=== PATIENT | male | born 1980 | race Caucasian/White ===

== ENCOUNTER 2016-09-13 12:04 | Emergency (ER) | payer OTHER ==
--- NOTE | 2016-09-13 12:28 | PHYS DOC ---
Past History Past Medical History: No Pertinent History Additional Past Surgical Histo: vasectomy, orthopedic surgeries on the right arm. Smoking: Non-smoker Alcohol Use: None Drug Use: None Adult General Chief Complaint Chief Complaint: LACERATION/AVULSION HPI HPI He is a pleasant 36-year-old male who presents today with a sudden onset of pain and laceration sustained to the middle finger of the right hand over the DIP joint after he sustained a crush injury to the finger while loading a raisin washer. Patient denies any numbness and tingling or foreign body station within the finger and the laceration itself. Patient's bleeding is controlled with direct pressure. Patient's tetanus shot is not up-to-date. Patient denies any other symptoms or other complaints. Patient has good range of motion at the joints without issue. Patient does not have any other complaints. Injury occurred 20 mins prior to arrival. He is right-hand dominant Review of Systems Review of Systems Constitutional: Denies fever or chills [] Eyes: Denies change in visual acuity, redness, or eye pain [] HENT: Denies nasal congestion or sore throat [] Respiratory: Denies cough or shortness of breath [] Cardiovascular: No additional information not addressed in HPI [] GI: Denies abdominal pain, nausea, vomiting, bloody stools or diarrhea [] : Denies dysuria or hematuria [] Musculoskeletal: complains of right middle finger pain Integument: Denies rash or skin lesions [] Neurologic: Denies headache, focal weakness or sensory changes [] Endocrine: Denies polyuria or polydipsia [] Current Medications Current Medications Current Medications Medications (Trade) Dose Ordered Sig/[facility] Start Time Stop Time Status Last Admin Dose Admin Diphtheria/ Tetanus/Acell Pertussis (Boostrix) 0.5 ml ONCE ONCE 09/13/16 12:30 09/13/16 12:31 UNV Lidocaine HCl 20 ml 1X ONCE 09/13/16 12:30 09/13/16 12:31 UNV Physical Exam Physical Exam Impression is vital signs been reviewed by me within normal limits as to what signs been reported in the results on the chart. for this and recorded on the chart.Constitutional: Well developed, well nourished, no acute distress, non-toxic appearance. [] Cardiovascular:Heart rate regular rhythm, no murmur [] Lungs & Thorax: Bilateral breath sounds clear to auscultation [] Skin: Warm, dry, no erythema, no rash. [] Extremities: Patient has sustained a 1.2 cm laceration of the DIP and the dorsum of the hand of the right middle finger. Full range of motion patient is no active foreign body that I can see. Tenderness seemed to be intact to flexion and extension at the DIP PIP of that finger. Patient has bleeding is well-controlled direct pressure. He has normal sensation to light touch and proprioception. There is brisk capillary refill at the fingertip +2 brisk peripheral pulses at the ulnar and radial arteries. Neurologic: Alert and oriented X 3, normal motor function, normal sensory function, no focal deficits noted. [] Psychologic: Affect normal, judgement normal, mood normal. [] Current Patient Data Vital Signs Vital Signs Date Time Temp Pulse Resp B/P (MAP) Pulse Ox O2 Delivery O2 Flow Rate FiO2 09/13/16 12:10 98.3 79 20 99 Room Air Vital Signs Date Time Temp Pulse Resp B/P (MAP) Pulse Ox O2 Delivery O2 Flow Rate FiO2 09/13/16 12:10 98.3 79 20 99 Room Air EKG EKG [] Radiology/Procedures Radiology/Procedures [] Course & Med Decision Making Course & Med Decision Making Pertinent Labs and Imaging studies reviewed. (See chart for details) Plan at this time is to x-ray the finger to make there is no bony involvement given the location of the injury. Patient will have the wound explored after analgesic control completed. We will repair his wound assuming is no foreign body found on x-ray. 3 view x-ray of the right hand demonstrates that there is no foreign body no bony involvement of the joint itself, no foreign body underneath the skin, no fracture read by Dr. Mcclain. Laceration repair of the right middle finger measuring 1.2 cm. Patient has finger prepped with chlorhexidine and minimally washed. He had a digital block placed at the crease of the MCP joint of that right middle finger using approximately 3 mL of 2% lidocaine. Patient had good analgesic control without issue. Patient had good hemostasis, patient had 7 interrupted 3. 0 nylon Ethilon sutures placed in rapid succession with good closure of the wound itself. Patient location is no excessive bleeding. Patient tolerated the procedure well. Procedure was given verbal consent before proceeding. Patient then had his wound dressed and splinted Impression: Right middle finger laceration. [] Dragon Disclaimer Dragon Disclaimer This chart was dictated in whole or in part using Voice Recognition software in a busy, high-work load, and often noisy Emergency Department environment. It may contain unintended and wholly unrecognized errors or omissions. Departure Departure: Impression: Primary Impression: Laceration Disposition: HOME, SELF-CARE Condition: STABLE Referrals: NON,STAFF (PCP) Patient Instructions: Laceration Care, Adult Additional Instructions: These return for any new or increasing symptoms or if you have any bleeding that is not controlled direct pressure. Please return for any signs of infection or pain is not well controlled or medications prescribed. I did advise a follow-up with your primary care doctor in 10-14 days for suture removal and wound care as well as to follow-up the forms provided for Workmen's Compensation of that is needed. Scripts Acetaminophen (TYLENOL) 325 Mg Tablet 1-2 TAB PO QID, #30 TAB 2 Refills Prov: DANIEL MCCLAIN MD 09/13/16 Bacitracin (BACITRACIN) 3.5 Gm Oint...g. 1 LISY OS TID, #3.5 GM Prov: DANIEL MCCLAIN MD 09/13/16 DANIEL MCCLAIN MD Sep 13, 2016 12:28
--- NOTE | 2016-09-13 12:36 | RAD ---
Indication laceration to the middle finger. Injury. Pain. AP and oblique views of the left hand were obtained as well as a lateral image targeted to the long finger. No bony abnormality is seen
[2016-09-13] MEDS ORDERED: LIDOCAINE 2% 20 ML VIAL. IJ ONE (13:15)
[2016-09-13] MEDS ORDERED: DIPHTH,PERTUSS(ACELL),TET TOX 0.5 ML DISP.SYRIN. VAX IM ONE (13:15)
[2016-09-13] MEDS ORDERED: ACET325T9 PO (13:40)
[2016-09-13] MEDS ORDERED: BACI3.5O8 OS (13:40)
[2016-09-13 14:00] VITALS: BP 157/83
== END 2016-09-13 13:50 | disposition home or self-care (01) ==
LOC: ER 12:04
DX: S61.212A Laceration without foreign body of right middle finger without damage to nail, initial encounter (principal); W23.0XXA Caught, crushed, jammed, or pinched between moving objects, initial encounter; Y93.89 Activity, other specified; Y92.89 Other specified places as the place of occurrence of the external cause; Y99.8 Other external cause status
CPT/HCPCS: 12001; 73130; 90471; 90715; 99284-25; J2001